=== PATIENT | male | born 1945 | race Caucasian/White ===

== ENCOUNTER 2020-03-24 10:49 | Inpatient (IN) | payer MEDICARE, SELFPAY ==
[2020-03-24] VITALS (8 sets, daily range): BP systolic 133–186; BP diastolic 54–90; PULSE 54–65; RESP 16–18; TEMP 36.6–36.9; O2SAT 97–98; BMI 34.4
--- NOTE | 2020-03-24 11:03 | XR_ITS ---
EXAMINATION: XR CHEST CLINICAL INFORMATION: Lightheadedness. COMPARISON: None TECHNIQUE: Frontal view of the chest was obtained. FINDINGS: No significant abnormality is noted involving the heart, lungs, mediastinum, bony thorax or soft tissues. No pulmonary edema or focal consolidation. Normal heart size. XR/XR chest 1V IMPRESSION: Unremarkable examination.
--- NOTE | 2020-03-24 11:03 | ECG_ITS ---
Test Reason : DIZZINESS Blood Pressure : / mmHG Vent. Rate : 055 BPM Atrial Rate : 055 BPM P-R Int : 210 ms QRS Dur : 110 ms QT Int : 448 ms P-R-T Axes : -03 031 020 degrees QTc Int : 428 ms Sinus bradycardia with 1st degree A-V block Otherwise normal ECG No previous ECGs available Referred By: Juliana Lynn Electronically Signed By:INDRA MIRANDA MD
--- NOTE | 2020-03-24 11:04 | CT_ITS ---
EXAMINATION: CT HEAD WITHOUT CONTRAST (STROKE PROTOCOL) CLINICAL INFORMATION: Stroke protocol. Lightheadedness and off-balance COMPARISON: None TECHNIQUE: Contiguous axial imaging was performed from the skull base to vertex without intravenous administration of contrast. This CT examination was performed using dose optimization techniques as appropriate, variously including the following: *Automated exposure control *Adjustment of mA and/or kV according to patient size (this includes techniques or standardized protocols for targeted exams where dose is matched to indication/reason for exam; i.e. extremities or head) *Use of iterative reconstruction technique DLP: 799 mGy-cm FINDINGS: There is no intracranial hemorrhage, hematoma, or extra-axial fluid collection. The ventricles are normal in size. There is no hydrocephalus, edema, or mass effect. The [place]-white matter differentiation appears symmetric. There are regions of diminished density seen in the subinsular regions bilaterally which may be related to microangiopathy. No associated edema is seen.. The calvarium appears intact. There is no pneumocephalus or orbital emphysema. The visualized sinuses and middle ears and mastoid air cells show no significant mucosal thickening. There are no air-fluid levels. CT/CT head for stroke IMPRESSION: No acute intracranial pathology. Findings consistent with microangiopathy involving the insula regions bilaterally. This critical result was discussed with Dr. Lynn at 11:38 AM hours on March 24, 2020. It was ascertained that the content and urgency of the report was understood at the time of direct communication.
--- NOTE | 2020-03-24 11:06 | MR_ITS ---
EXAMINATION: MR BRAIN WITHOUT CONTRAST CLINICAL INFORMATION: Lightheadedness. COMPARISON: Head CT from earlier in the same afternoon on 04/03/2020. TECHNIQUE: Multiplanar, multisequence imaging of the brain was performed without contrast. FINDINGS: There is a punctate focus of restricted diffusion in the mid cerebellar vermis. The ventricles are normal in size. No mass effect or midline shift is seen. Mild chronic white matter microangiopathic changes noted in the both hemispheres. No extra-axial fluid collections are seen. The brainstem and remainder of the cerebellum are normal. The gradient refocused acquisition is normal. The craniovertebral junction, marrow signal, and midline structures are normal. The major intracranial flow voids at the level of the [place] are preserved. The dural venous sinus flow voids are maintained. There is trace fluid in the left mastoid air cells dependently. Moderate posterior left ethmoid sinus mucosal thickening noted. MR/MR head/brain wo con IMPRESSION: Punctate focus of diffusion signal abnormality in the cerebellar vermis which may represent a small acute infarct. Mild chronic white matter microangiopathy. Imaging findings reported to Dr. Escamilla at 1:05 PM on 04/03/2020.
--- NOTE | 2020-03-24 11:11 | ED.DIZZY ---
HPI - Dizziness General Chief Complaint: Dizziness Stated Complaint: dizziness/nausea/htn Time Seen by Provider: 03/24/20 10:51 Source: patient and EMS Mode of arrival: EMS History of Present Illness HPI Narrative: 75-year-old male with a past medical history of AFib s/p ablation on baby ASA daily, GERD, HTN, BIBA s/p sudden onset lightheadedness, diaphoresis, nausea, blurry vision, & near-syncope at 9:20 a.m. while at breakfast with friends. Reports symptoms mildly improved but when was walking to car had staggering/off balanced gait, reports he had to hold on to another vehicle to regain balance. Admits to residual nausea, lightheadedness now. Denies headache, CP, SOB, numbness/tingling, abdominal pain, vomiting MD elicited complaint: lightheadedness, near syncope and difficulty walking Related Data Home Medications Medication Instructions Recorded Confirmed amlodipine 1 tab PO DAILY@1700 03/24/20 03/24/20 lisinopril 20 mg PO BID 03/24/20 03/24/20 pantoprazole 1 tab PO DAILY 03/24/20 03/24/20 Allergies Allergy/AdvReac Type Severity Reaction Status Date / Time No Known Allergies Allergy Verified 03/24/20 11:01 Review of Systems Review of Systems: Constitutional: No Weight loss, No Fever, + Chills, +diaphoresis ENT/Mouth: No Hearing loss, No Ear Pain, No Nasal Congestion, No Sinus Pain, No Hoarseness, No sore throat, No Rhinorrhea, No Swallowing Difficulty Eyes: No Eye Pain, + Vision Changes Cardiovascular: No Chest Pain, No SOB, No Palpitations Respiratory: No Cough, No Sputum, No Wheezing, No Dyspnea Gastrointestinal: + Nausea, No Vomiting, No Diarrhea, No Constipation, No Abdominal pain Musculoskeletal: No joint pain, No Myalgias, No Joint Swelling Skin: No Skin Lesions, No rash Neuro: No Weakness, No Numbness, No Paresthesias, No Loss of Consciousness,+lighteaded/Dizziness, No Headache Yes all other systems are reviewed and are negative Neurologic: Denies Abnormal speech present and Denies Sensory deficit (Neuro) [facility] Past Medical History Attestation statement: The following information was validated with the patient. Medical History (Updated 03/24/20 @ 13:36 by GRAYSON Corona) A-fib GERD (gastroesophageal reflux disease) HTN (hypertension) Surgical History (Updated 03/24/20 @ 11:06 by Alana Chaparro) S/P ablation of atrial fibrillation Social History Social History Smoking Status: Never smoker Use of substances other than those prescribed or required for medical reasons: No Advance Directives: No Advance Directives Information Provided: No Physical Exam Vital Signs: Vital Signs: Last Vital Signs Temp 97.9 F 03/24/20 14:37 Pulse 61 03/24/20 14:37 Resp 18 03/24/20 14:37 BP 174/57 H 03/24/20 14:37 Pulse Ox 98 03/24/20 11:01 Body Mass Index 34.4 Const: General: cooperative and healthy appearing Orientation/consciousness: patient oriented x3 Limitations: no limitations HENMT: Head: Yes normal to inspection Ears: hearing grossly normal bilaterally General nose exam: Normal external nose present Face and sinus: Yes normal facial exam Eyes: General: appearance normal, both eyes and all related structures Sclerae: sclerae normal Corneas: corneas normal Pupils: Equal, round and reactive pupils present EOM: EOMs intact bilaterally Neck: Neck: Yes normal visual inspection and Yes no meningeal signs Resp: Effort & Inspection: normal respiratory effort Auscultation: clear to auscultation bilaterally, no crackles, no rhonchi and no wheezes Cardio: Rate: regular rate Heart sounds: S1 normal heart sound present and S2 normal heart sound present GI: Inspection: Yes normal to inspection Palpation (GI): Soft to palpation, nontender, no guarding and not rigid Skin: Rashes: no rashes Wounds: no wounds Neuro: General: patient oriented x3, tone normal, moves all extremities, no meningeal signs and CN's II-XI intact bilaterally Cranial nerves: Yes Equal, round and reactive pupils present Cognition (Neuro): normal cognition Speech: No Abnormal speech present Gait exam (Neuro): Staggering gait present (Slightly staggered gait to right-sided) Motor exam (neuro): 5/5 motor strength present throughout Sensory Exam: No Sensory deficit (Neuro) Coordination: [id number] test normal Extrem: Other: Mild bilateral LE pitting edema General: Yes normal to inspection Course Course Course Narrative: -1140--spoke to [facility], nothing acute on head CT. Brain MRI has been ordered. MRI called in -BUN 36, BNP 128, trop 6.8 > will obtain 3hr repeat at 1435, labs otherwise unremarkable -CXR unremarkable -I have been in close contact with medical front desk coordinator who has been in contact with Neurology, MRI showing punctate focus in the cerebellar which may represent a small acute infarct > per neurology area too small for tPA, NIHSS low, patient is not a candidate for tPA. Neurology recommended admission and CTA head and neck MDM - Dizziness MDM Narrative Medical decision making narrative: 75-year-old male with a past medical history of AFib s/p ablation on baby ASA daily, GERD, HTN, BIBA s/p sudden onset lightheadedness, diaphoresis, nausea, blurry vision, & near-syncope at 9:20 a.m. while at breakfast with friends also noted to have staggering/off-balance gait. On exam mildly hypertensive, NAD, mild staggering gait noted to the right side, no other focal neuro deficits, NIHSS =1 (due to right-sided LE ataxia). Concern for ACS vs cerebellar infarct/CVA vs metabolic etiology Patient is not candidate for tPA due to low NIHSS Plan: EKG, labs, stat head CT, UA, brain MRI, reassess Lab Data Result diagrams: 03/24/20 11:36 03/24/20 11:35 Labs: Lab Results 03/24/20 03/24/20 03/24/20 Range/Units 11:35 11:35 11:35 WBC (4.8-10.8) X10*3/uL RBC (4.60-5.80) X10*6/uL Hgb (14.0-18.0) g/dl Hct (42-52) % MCV (80-98) fL MCH (27.0-33.0) pg MCHC (31.0-36.0) g/dl RDW (11.0-16.0) % Plt Count (160-400) X10*3/uL MPV (9.4-12.4) fL Immature Gran % (Auto) (0.0-0.4) % Neut % (Auto) (45-73) % Lymph % (Auto) (20-40) % [place] % (Auto) (2-11) % Eos % (Auto) (0-4) % Baso % (Auto) (0-2) % Lymph # (Auto) (1.2-4.9) X10*3/uL [place] # (Auto) (0.1-1.2) X10*3/uL Eos # (Auto) (0.0-0.4) X10*3/uL Baso # (Auto) (0.0-0.2) X10*3/uL Abs Immat Gran (auto) (0.00-0.03) X10*3/uL Absolute Neuts (auto) (2.0-8.3) X10*3/uL Absolute Nucleated RBC (0.0-0.012) X10*3/uL Nucleated RBC % (auto) (0.0-0.2) /100WBC PT 12.2 (10.8-13.0) SEC INR 1.0 (0.9-1.1) APTT 31.6 (24.1-38.0) SEC Hold Blue Top Sodium 134 L (135-145) mmol/L Potassium 4.6 (3.3-5.1) mmol/l Chloride 102 (96-108) mmol/L Carbon Dioxide 25 (22-29) mmol/L Anion Gap 12 (12-20) BUN 36 H (9-16) mg/dL Creatinine 1.28 (0.5-1.4) mg/dL Estim Creat Clear Calc 54.1 Estimated GFR 55 Random Glucose 197 H (60-115) mg/dL Calcium 8.4 (8.4-10.2) mg/dL Magnesium 2.3 (1.6-2.6) mg/dL Total Bilirubin 0.5 (0.0-1.0) mg/dL Direct Bilirubin 0.2 (0.0-0.5) mg/dL AST 28 (5-37) U/L ALT 28 (0-40) U/L Alkaline Phosphatase 57 (39-117) U/L Troponin I High Sens 6.8 (<3.5-35.0) ng/L B-Natriuretic Peptide 128 H (<100) pg/mL Total Protein 6.7 (6.5-8.0) g/dL Albumin 4.2 (3.5-5.0) g/dL Urine Color Urine Appearance Urine pH (5.0-8.0) Ur Specific [place] (1.005-1.025) Urine Protein (NEG-TRACE) MG/DL Urine Glucose (UA) (NEG) MG/DL Urine Ketones (NEG) MG/DL Urine Blood (NEG) Urine Nitrite (NEG) Ur Leukocyte Esterase (NEG) 03/24/20 03/24/20 03/24/20 Range/Units 11:36 11:36 14:29 WBC 7.7 (4.8-10.8) X10*3/uL RBC 4.99 (4.60-5.80) X10*6/uL Hgb 15.1 (14.0-18.0) g/dl Hct 44.2 (42-52) % MCV 88.6 (80-98) fL MCH 30.3 (27.0-33.0) pg MCHC 34.2 (31.0-36.0) g/dl RDW 12.1 (11.0-16.0) % Plt Count 206 (160-400) X10*3/uL MPV 10.9 (9.4-12.4) fL Immature Gran % (Auto) 0.3 (0.0-0.4) % Neut % (Auto) 75.2 H (45-73) % Lymph % (Auto) 12.8 L (20-40) % [place] % (Auto) 10.4 (2-11) % Eos % (Auto) 0.8 (0-4) % Baso % (Auto) 0.5 (0-2) % Lymph # (Auto) 1.0 L (1.2-4.9) X10*3/uL [place] # (Auto) 0.8 (0.1-1.2) X10*3/uL Eos # (Auto) 0.1 (0.0-0.4) X10*3/uL Baso # (Auto) 0.0 (0.0-0.2) X10*3/uL Abs Immat Gran (auto) 0.02 (0.00-0.03) X10*3/uL Absolute Neuts (auto) 5.8 (2.0-8.3) X10*3/uL Absolute Nucleated RBC 0.000 (0.0-0.012) X10*3/uL Nucleated RBC % (auto) 0.0 (0.0-0.2) /100WBC PT (10.8-13.0) SEC INR (0.9-1.1) APTT (24.1-38.0) SEC Hold Blue Top SEE NOTE Sodium (135-145) mmol/L Potassium (3.3-5.1) mmol/l Chloride (96-108) mmol/L Carbon Dioxide (22-29) mmol/L Anion Gap (12-20) BUN (9-16) mg/dL Creatinine (0.5-1.4) mg/dL Estim Creat Clear Calc Estimated GFR Random Glucose (60-115) mg/dL Calcium (8.4-10.2) mg/dL Magnesium (1.6-2.6) mg/dL Total Bilirubin (0.0-1.0) mg/dL Direct Bilirubin (0.0-0.5) mg/dL AST (5-37) U/L ALT (0-40) U/L Alkaline Phosphatase (39-117) U/L Troponin I High Sens (<3.5-35.0) ng/L B-Natriuretic Peptide (<100) pg/mL Total Protein (6.5-8.0) g/dL Albumin (3.5-5.0) g/dL Urine Color YELLOW Urine Appearance CLEAR Urine pH 6.0 (5.0-8.0) Ur Specific [place] 1.015 (1.005-1.025) Urine Protein NEG (NEG-TRACE) MG/DL Urine Glucose (UA) 250 H (NEG) MG/DL Urine Ketones NEG (NEG) MG/DL Urine Blood NEG (NEG) Urine Nitrite NEG (NEG) Ur Leukocyte Esterase NEG (NEG) Discharge Plan Discharge Clinical Impression: Cerebrovascular accident Patient Disposition: Admitted As Inpatient
--- NOTE | 2020-03-24 11:19 | PC.NURSE ---
Patient a&ox3, neuro intact, pt put on rn cardiac rehab, sinus dorothy 60s, no c/o pain or discomfort, patient refused medication for nausea, pt direct to ct scan, will perform ekg and labs upon return.
[2020-03-24 11:42] LABS: MANUAL DIFF FLAG NO
[2020-03-24 11:44] LABS: Basophils Percent Auto 0.5 % (0-2); Eosinophils Absolute Auto 0.1 X10*3/uL (0.0-0.4); Eosinophils Percent Auto 0.8 % (0-4); Hematocrit 44.2 % (42-52); Hemoglobin 15.1 g/dl (14.0-18.0); Imm Gran Abs Auto 0.02 X10*3/uL (0.00-0.03); Imm Gran Pct Auto 0.3 % (0.0-0.4); Lymphocytes Percent Auto 12.8 % (20-40); Mean Corpuscular HGB Conc 34.2 g/dl (31.0-36.0); Mean Corpuscular Hemoglobin 30.3 pg (27.0-33.0); Mean Corpuscular Volume 88.6 fL (80-98); Mean Platelet Volume 10.9 fL (9.4-12.4); Monocytes Absolute Auto 0.8 X10*3/uL (0.1-1.2); Monocytes Percent Auto 10.4 % (2-11); Neutrophils Absolute Auto 5.8 X10*3/uL (2.0-8.3); Neutrophils Percent Auto 75.2 % (45-73); Platelet Count 206 X10*3/uL (160-400); Red Blood Count 4.99 X10*6/uL (4.60-5.80); Red Cell Distribution Width 12.1 % (11.0-16.0); White Blood Count 7.7 X10*3/uL (4.8-10.8)
[2020-03-24 12:02] LABS: Prothrombin Time 12.2 SEC (10.8-13.0)
[2020-03-24 12:04] LABS: Partial Thromboplastin Time 31.6 SEC (24.1-38.0)
[2020-03-24 12:16] LABS: Alanine Aminotransferase 28 U/L (0-40); Albumin Level 4.2 g/dL (3.5-5.0); Alkaline Phosphatase 57 U/L (39-117); Anion Gap 12 (12-20); Aspartate Amino Transferase 28 U/L (5-37); Bilirubin Direct 0.2 mg/dL (0.0-0.5); Bilirubin Total 0.5 mg/dL (0.0-1.0); Blood Urea Nitrogen 36 mg/dL (9-16); Calcium 8.4 mg/dL (8.4-10.2); Carbon Dioxide 25 mmol/L (22-29); Chloride 102 mmol/L (96-108); Creatinine Clr Calc Pharmacy 54.1; Estimated Glomerular Filt Rate 55; Glucose Random 197 mg/dL (60-115); Magnesium 2.3 mg/dL (1.6-2.6); Potassium 4.6 mmol/l (3.3-5.1); Sodium 134 mmol/L (135-145); Total Protein 6.7 g/dL (6.5-8.0)
[2020-03-24 12:20] LABS: B Type Natriuretic Peptide 128 pg/mL (<100); Troponin-I High Sensitivity 6.8 ng/L (<3.5-35.0)
[2020-03-24] MEDS: 0.9 % Sodium Chloride 1,000 ML 999 ML IVCONT (12:47)
--- NOTE | 2020-03-24 13:00 | PC.NURSE ---
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
--- NOTE | 2020-03-24 13:03 | CT_ITS ---
EXAMINATION: CT ANGIOGRAM NECK CLINICAL INFORMATION: Evaluate CVA. COMPARISON: MRI scan of the brain and CT scan of the head earlier 03/24/2020. TECHNIQUE: Test bolus series followed by intravenous administration 720 mL of Omnipaque 350. Helical imaging was performed in the axial plane from the mediastinum to the skull vertex. Delayed CT scan of the head was obtained. The degree of stenosis is based off NASCET criteria. The data was processed at the anesthesiology technologist workstation for generation of MIP images. Three-dimensional volume rendered reformatted images were also generated at an offline 3-D workstation. This CT examination was performed using dose optimization techniques as appropriate, variously including the following: *Automated exposure control *Adjustment of mA and/or kV according to patient size (this includes techniques or standardized protocols for targeted exams where dose is matched to indication/reason for exam; i.e. extremities or head) *Use of iterative reconstruction technique DLP: 1637.57 mGy-cm. FINDINGS: CT Head: There is no evidence of acute intracranial hemorrhage or territorial infarction. No abnormal mass-effect or midline shift is seen. Flynn to white matter differentiation is well preserved. No extra-axial fluid collections are identified. There is no abnormal enhancement. The ventricles and sulci appear normal. There are areas of low-attenuation in the periventricular and subcortical white matter, consistent with chronic microvascular ischemic changes. There are atheromatous calcifications of the bilateral vertebral and cavernous internal carotid arteries. The osseous structures and soft tissues are normal. There is trace fluid at the left mastoid tip. There is opacification of the left posterior ethmoid air cells. CTA Neck: There is a classic configuration of the arch of the aorta. There are relatively extensive atheromatous calcifications of the aortic arch and at the origins of the great vessels of the neck and the right subclavian artery. The bilateral common carotid arteries demonstrate atheromatous calcifications, without significant stenosis. There are heavy atheromatous calcifications at the carotid bifurcations bilaterally. There is approximately 75% stenosis at the right carotid bifurcation. There is approximately 50% stenosis on the left. The cervical internal carotid arteries are slightly tortuous but have uniform caliber and are patent bilaterally. The origin of the left vertebral artery is not well demonstrated, and the left vertebral artery has thinner and slightly irregular contour compared to the right. The origin of the right vertebral artery appears normal, and there is good flow in the dominant right vertebral artery. Nonvascular: There are atelectatic changes in the posterior lungs. The thyroid gland appears normal. There is no cervical lymphadenopathy. There are mild degenerative changes in the cervical spine. The left maxillary and mandibular 3rd molar teeth are unerupted, with prominent surrounding dentigerous cysts. There is expansion of the mandible around the evolving the lingual cortex. CTA Head: There are heavy atheromatous calcifications in the cavernous internal carotid arteries bilaterally, but the vessels are patent. There is good flow in the supraclinoid internal carotid arteries bilaterally. The A1 segment of the right anterior cerebral artery has thinner caliber compared to the left, likely a normal variant. Both A2 segments and the A1 segment of the left anterior cerebral artery have uniform and normal caliber. Both middle cerebral arteries are widely patent, and there is good arborization of the middle cerebral artery branches. The anterior communicating artery is normal. In the posterior circulation, the right vertebral artery is dominant. There are atheromatous calcifications of the bilateral intradural vertebral arteries. The caliber of the distal cervical and the intradural left vertebral artery appears relatively uniform. The left vertebral artery ends primarily in the PICA. The right vertebral artery is patent. The basilar artery appears normal. The left vertebral artery arises primarily from the anterior circulation. The posterior cerebral arteries are patent bilaterally. CT/CT angio head neck IMPRESSION: CT head and neck: 1. There are no acute bleeds or territorial infarcts. There are no masses or areas of abnormal enhancement. 2. There is diffuse volume loss and there are chronic microvascular ischemic changes. 3. There are unerupted left maxillary and mandibular 3rd molar teeth with prominent surrounding dentigerous cysts. Recommend dental/maxillofacial evaluation. CTA head and neck: 1. There are severe atheromatous calcifications throughout the cervical and intracranial vasculature. 2. There is approximately 70% stenosis of the right carotid bifurcation and approximately 50% stenosis on the left. 3. The left vertebral artery has thinner and irregular contour compared to the right in the neck, but appears to have good flow intradurally; it ends primarily in the PICA. 4. Intracranially there are no focal stenoses, aneurysms or vascular malformations. This critical result was discussed with Juliana Lynn at 3:15 PM on 03/24/2020 and it was ascertained that the content and urgency of the report was understood at the time of direct communication.
--- NOTE | 2020-03-24 13:09 | MHC.STROKE ---
EMS FROM OUTPATIENT CLINIC, ONSET AT 0920 OF DIZZINESS, NAUSEA, OFF BALANCE, HTN 213/84.,?BLURRED VISION. [place] [facility] [place] 10[place]. ARRIVED AT 1049. STROKE PROTOCOL CT STAT DONE AT 1118, NO BLEED. STAT MRI ORDERED. I SPOKE WITH ED PROVIDER AND THEN CALLED THE NEUROLOGIST. I FOLLOWED UP WITH WITH NEUROLOGIST AND HE AGREED WITH NO TPA (ALTEPLASE) NIHSS = 1. STROKE SEVERITY TOO MILD NON-DISABLING. CAN ADMIT AND CTA H/N PART OF THE WORKUP. SWALLOW SCREEN PRIOR TO PO, ECHO, NEUROLOGY CONSULT, LABS, STROKE EDUCATION. FOLLOW STROKE ORDER SET MODULE.
--- NOTE | 2020-03-24 13:10 | PC.NURSE ---
CALL TO DR DODSON
[2020-03-24 14:43] LABS: Glucose Urine UA 250 MG/DL (NEG); Leukocyte Esterase Urine NEG (NEG); Nitrite Urine NEG (NEG); Specific Gravity - Urine 1.015 (1.005-1.025); Urine Blood NEG (NEG); Urine Ketones NEG (NEG); Urine Protein NEG (NEG-TRACE)
--- NOTE | 2020-03-24 14:46 | PM.IMHP ---
History of Present Illness Date of Service: 03/24/20 Chief Complaint: Dizziness 75-year-old man presented to the ER with complaints of lightheadedness and diaphoresis this morning. He reports that around 09:00 he was eating breakfast with his friends and suddenly he began to feel lightheaded and it began sweating. He reports that he was on his way out to go home and he felt like he had some trouble walking he felt drunk . He went home and his significant other brought him to an urgent care who called an ambulance and told him to come to the ER to be evaluated. He reports a history of hypertension and cardiac ablation for atrial fibrillation in the past. He also has acid reflux. He had an MRI which showed a punctuate focus in the cerebellar vermis. Head and neck CTA showed 70% stenosis of the right carotid bifurcation and approximately 50% stenosis on the left. His labs are within acceptable limits his vital signs were also stable though his blood pressure is mildly elevated. He denies chest pain, shortness of breath, nausea, vomiting, diarrhea, loss of consciousness or history of stroke in the past. He received 1 L of IV fluid. He will be admitted for further management and treatment of acute stroke. Review of Systems Review of Systems: Denies any recent fever chills or decrease in appetite respiratory denies any shortness of breath coverage production cardiovascular is adjustment of any PND or edema gastrointestinal denies any dysphagia abdominal pain nausea vomiting or diarrhea genitourinary denies any dysuria frequency or hematuria musculoskeletal denies any joint pain or swelling neuropsych denies any weakness or seizures all other systems reviewed are negative Neurologic: Denies Sensory deficit (Neuro) [facility] [place] Medical History (Updated 03/24/20 @ 13:36 by GRAYSON Corona) A-fib GERD (gastroesophageal reflux disease) HTN (hypertension) Pertinent family history: Denies cardiac disease Surgical History (Updated 03/24/20 @ 11:06 by Alana Chaparro) S/P ablation of atrial fibrillation Social History Household Members: None Housing: House Do you presently have visiting nurse or other home services: No Smoking Status: Never smoker Use of substances other than those prescribed or required for medical reasons: No Currently Displaying Signs/Symptoms of Drug Intoxication Withdrawal: No Have you been hit, kicked, punched, or otherwise hurt by someone within the past year? If so, by whom?: No Do you feel safe in your current relationship?: Yes Is there a partner from a previous relationship who is making you feel unsafe now?: No Are you made to feel afraid or neglected: No Advance Directives: No Advance Directives Information Provided: No Do you have thoughts of harming others: None Do you have a plan to hurt others: No Plan Recently lost weight without trying: No service: No Current occupational status: retired Meds Allergies Allergy/AdvReac Type Severity Reaction Status Date / Time No Known Allergies Allergy Verified 03/24/20 11:01 Home Medications Medication Instructions Recorded Confirmed Type amlodipine 1 tab PO DAILY@1700 03/24/20 03/24/20 History lisinopril 20 mg PO BID 03/24/20 03/24/20 History pantoprazole 1 tab PO DAILY 03/24/20 03/24/20 History Physical Exam Vital Signs and Narrative: Vital Signs: Last Vital Signs Temp 97.9 F 03/24/20 14:37 Pulse 61 03/24/20 14:37 Resp 18 03/24/20 14:37 BP 174/57 H 03/24/20 14:37 Pulse Ox 98 03/24/20 11:01 Body Mass Index 34.4 Appearing in no acute distress head is normocephalic atraumatic eyes pupils are PERRLA sclera is anicteric mouth throat mucous membranes are intact and moist neck is supple no lymphadenopathy, no JVD noted lung sounds are clear to auscultation heart regular rate rhythm, clear S1, S2 positive bowel sounds, abdomen is soft, nontender neuro patient is alert x3, no focal deficits Neuro: Sensory Exam: No Sensory deficit (Neuro) Results Labs CBC and Chem 7: 03/25/20 06:10 03/25/20 06:10 Labs: Laboratory Results - last 24 hr 03/24/20 03/24/20 03/24/20 11:35 11:35 11:35 MCV MCH MCHC RDW Plt Count MPV Immature Gran % (Auto) Neut % (Auto) Lymph % (Auto) Lanier % (Auto) Eos % (Auto) Baso % (Auto) Lymph # (Auto) Lanier # (Auto) Eos # (Auto) Baso # (Auto) Abs Immat Gran (auto) Absolute Neuts (auto) Absolute Nucleated RBC Nucleated RBC % (auto) PT 12.2 INR 1.0 APTT 31.6 Hold Blue Top Anion Gap 12 Estim Creat Clear Calc 54.1 Estimated GFR 55 Random Glucose 197 H Calcium 8.4 Magnesium 2.3 Total Bilirubin 0.5 Direct Bilirubin 0.2 AST 28 ALT 28 Alkaline Phosphatase 57 Troponin I High Sens 6.8 B-Natriuretic Peptide 128 H Total Protein 6.7 Albumin 4.2 03/24/20 03/24/20 11:36 11:36 MCV 88.6 MCH 30.3 MCHC 34.2 RDW 12.1 Plt Count 206 MPV 10.9 Immature Gran % (Auto) 0.3 Neut % (Auto) 75.2 H Lymph % (Auto) 12.8 L Lanier % (Auto) 10.4 Eos % (Auto) 0.8 Baso % (Auto) 0.5 Lymph # (Auto) 1.0 L Lanier # (Auto) 0.8 Eos # (Auto) 0.1 Baso # (Auto) 0.0 Abs Immat Gran (auto) 0.02 Absolute Neuts (auto) 5.8 Absolute Nucleated RBC 0.000 Nucleated RBC % (auto) 0.0 PT INR APTT Hold Blue Top SEE NOTE Anion Gap Estim Creat Clear Calc Estimated GFR Random Glucose Calcium Magnesium Total Bilirubin Direct Bilirubin AST ALT Alkaline Phosphatase Troponin I High Sens B-Natriuretic Peptide Total Protein Albumin Imaging Radiologist's Impressions: Impressions Chest X-Ray 03/24/20 11:03 IMPRESSION: Unremarkable examination. Head CT 03/24/20 11:04 IMPRESSION: No acute intracranial pathology. Findings consistent with microangiopathy involving the insula regions bilaterally. This critical result was discussed with Dr. Lynn at 11:38 AM hours on March 24, 2020. It was ascertained that the content and urgency of the report was understood at the time of direct communication. Brain MRI 03/24/20 11:06 IMPRESSION: Punctate focus of diffusion signal abnormality in the cerebellar vermis which may represent a small acute infarct. Mild chronic white matter microangiopathy. Imaging findings reported to Dr. Escamilla at 1:05 PM on 04/03/2020. Assessment and Plan (1) Cerebrovascular accident: Status: Acute 75-year-old man admitted with acute stroke. He has history of afib with ablation and has not been on anticoagulation. Stroke. Small area punctuate focus to the cerebellar vermis. Did not receive tPA. No focal deficits noted. Neurology to follow, aspirin, statin, PT / OT, echocardiogram. Hypertension. Stable blood pressure. Hold antihypertensives. GERD. PPI. DVT prophylaxis with Heparin. Discussed with Dr. Naren Villanueva code
[2020-03-24 14:47] LABS: Appearance Urine CLEAR; Color Urine YELLOW
[2020-03-24 15:42] LABS: Troponin-I High Sensitivity 7.3 ng/L (<3.5-35.0)
--- NOTE | 2020-03-24 16:07 | PC.NURSE ---
called floor, will call the ed back for report
--- NOTE | 2020-03-24 16:14 | PC.NURSE ---
patient a&ox3, ambulated to bathroom with steady gait, pt nsr on monitor 60s-70s, has c/o 4-09/24 rt tooth pain otherwise denies chest/back or head pain, vss, will continue to monitor
[2020-03-24] MEDS: Aspirin Enteric Coated 325 MG TABLET.DR PO (17:15)
--- NOTE | 2020-03-24 17:16 | PC.NURSE ---
patient a&ox3, sinus dorothy 60s on monitor, pt medicated per order, will be transported to floor
[2020-03-24 18:00] LABS: SARS COV2 PCR INHOUSE NEGATIVE (Negative)
[2020-03-24] MEDS: Aspirin Enteric Coated 81 MG TABLET.DR 162 MG PO (18:27)
--- NOTE | 2020-03-24 19:07 | PC.NURSE ---
Pt arrived to the unit from ER at 1745. Pt is alert & oriented x4. Pt does report slight dizziness . No headache. Neuros intact. Pt Sinus Loki. BP's 180 systolically. MD aware. Ok for elevated BP's per MD d/t stroke guidelines. Swallow evaluation completed. Pt passed. Low sodium diet ordered. Pt currently eating dinner now without any issues. + BS X4Q. Pt voids urine via bathroom. LSC. RA. Sats high 90's. #20 to Right wrist intact. No skin issues noted. Pt is steady on his feet. High fall risk d/t stroke protocol. Pt does report drinking 3-4 white claws a night. CIWA and alcohol assessment initiated. Pt not displaying any signs of withdrawal. CIWA 0. Call naavrro in reach. Pt oriented to unit.
--- NOTE | 2020-03-24 19:26 | PC.NURSE ---
pt was medicated earlier with asa, scanned the med although it would not scan, double checked medication with additional RN to ensure it was correct, will notify pharmacy that it is not scanning
[2020-03-24] MEDS: Heparin Sodium,Porcine 5,000 UNIT/ML VIAL 5000 UNIT SUBCUT (20:01)
[2020-03-24] MEDS: Atorvastatin Calcium 80 MG TABLET PO (20:03)
--- NOTE | 2020-03-24 20:22 | PM.EVENT ---
Event Note Event Note: Attending Admission Note Patient seen and examined on the floor around 630pm. Being admitted for acute cerebellar infarct. Not a candidate for tPA per ED discussion with the neurology team. Prior history of A. Fib on coumadin - s/p ablation. Does endorse some intermittent palpitations with exertion. Plan: 1. Neuro consult 2. Stroke protocol for work up. 3. Monitor on tele, currently in sinus 4. asa for now, may need OAC -- will await neuro input. High intensity statin. 5. Allow for permission HTN 6. Remainder per H&P. Case d/w Katy Burks NP. Agree with her H&P / Assessment.
[2020-03-25 01:42] VITALS: BP 173/68; PULSE 59; RESP 18; TEMP 36.7; O2SAT 95
[2020-03-25 03:57] VITALS: BP 159/59; PULSE 58; RESP 18; TEMP 37.1; O2SAT 95
[2020-03-25] MEDS: Omeprazole 20 MG CAPSULE.DR PO (05:55)
[2020-03-25 07:11] LABS: MANUAL DIFF FLAG NO
[2020-03-25 07:29] LABS: Basophils Percent Auto 0.7 % (0-2); Eosinophils Absolute Auto 0.1 X10*3/uL (0.0-0.4); Eosinophils Percent Auto 2.6 % (0-4); Hematocrit 44.5 % (42-52); Hemoglobin 15.1 g/dl (14.0-18.0); Imm Gran Abs Auto 0.01 X10*3/uL (0.00-0.03); Imm Gran Pct Auto 0.2 % (0.0-0.4); Lymphocytes Absolute Auto 1.4 X10*3/uL (1.2-4.9); Lymphocytes Percent Auto 24.9 % (20-40); Mean Corpuscular HGB Conc 33.9 g/dl (31.0-36.0); Mean Corpuscular Hemoglobin 30.1 pg (27.0-33.0); Mean Corpuscular Volume 88.6 fL (80-98); Mean Platelet Volume 11.4 fL (9.4-12.4); Monocytes Absolute Auto 0.7 X10*3/uL (0.1-1.2); Monocytes Percent Auto 13.3 % (2-11); Neutrophils Absolute Auto 3.2 X10*3/uL (2.0-8.3); Neutrophils Percent Auto 58.3 % (45-73); Platelet Count 200 X10*3/uL (160-400); Red Blood Count 5.02 X10*6/uL (4.60-5.80); Red Cell Distribution Width 12.1 % (11.0-16.0); White Blood Count 5.4 X10*3/uL (4.8-10.8)
[2020-03-25 07:37] LABS: Glucose, Whole Blood 117 mg/dL (60-115)
[2020-03-25 07:40] VITALS: BP 190/73; PULSE 62; RESP 18; TEMP 36.7; O2SAT 96
[2020-03-25 07:58] LABS: Anion Gap 13 (12-20); Blood Urea Nitrogen 29 mg/dL (9-16); Calcium 8.3 mg/dL (8.4-10.2); Carbon Dioxide 24 mmol/L (22-29); Chloride 105 mmol/L (96-108); Creatinine Clr Calc Pharmacy 66.6; Estimated Glomerular Filt Rate > 60; Glucose Random 116 mg/dL (60-115); Potassium 4.8 mmol/l (3.3-5.1); Sodium 137 mmol/L (135-145)
[2020-03-25] MEDS: Acetaminophen 325 MG TABLET 650 MG PO (09:10)
[2020-03-25] MEDS: Aspirin Enteric Coated 81 MG TABLET.DR PO (09:11)
[2020-03-25] MEDS: Heparin Sodium,Porcine 5,000 UNIT/ML VIAL 5000 UNIT SUBCUT (09:11)
--- NOTE | 2020-03-25 09:13 | MHC.CM.PN ---
CM met with Patient. 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 Patient states that he is already up and about walking and he does not feel that he will need VNA/PT in the home. CM has initiated and will follow for dc planning. IMM addressed with Patient and the original has been given to him and a copy has been placed on the chart. Patient's Partner's Daughter/Lin, who is a RN, is his HCP and Dr. Karen Maharaj @ [phone] is his PCP.
--- NOTE | 2020-03-25 09:31 | MHC.STROKE ---
Lipid panel was ordered for today at 1800, i called the lab and verified that this should be fasting. It was added to his am labs from today.
[2020-03-25 09:42] LABS: Cholesterol 212 mg/dL; HDL Cholesterol 47 mg/dL; LDL Cholesterol Calculated 130 mg/dl; Triglycerides 179 mg/dL
[2020-03-25 09:49] VITALS: BP 189/77; PULSE 70; RESP 20; TEMP 36.7; O2SAT 97
[2020-03-25 12:00] VITALS: BP 196/77; PULSE 63; RESP 20; TEMP 36.8; O2SAT 96
--- NOTE | 2020-03-25 12:13 | PM.DS ---
DS: Providers Provider Date of admission: 03/24/20 15:34 Primary care physician: Unknown Physician Consults: 03/24/20 17:58 Consult to Neurology Routine Consulting Provider: [facility] Reason for consultation: stroke Has provider been notified: No DS: Diagnosis Discharge Diagnosis (1) Cerebrovascular accident: Status: Acute DS: Summary Hospital Course Hospital Course: Patient was admitted for acute CVA. He had no events on telemetry. He was started on aspirin statin, he was seen by neurology recommended using full anticoagulation with Eliquis instead of aspirin due to high suspicion for recurrent a flutter. 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 He will have his echocardiogram done as outpatient. His deficits have almost entirely resolved. Time Spent with Patient Time attestation: Total time spent providing and/or coordinating discharge services: Physical Exam Vital Signs: Vital Signs: Last Vital Signs Temp 98.1 F 03/25/20 09:49 Pulse 70 03/25/20 09:49 Resp 20 03/25/20 09:49 BP 189/77 H 03/25/20 09:49 Pulse Ox 97 03/25/20 09:49 Body Mass Index 34.4 General: AO X 3, no acute distress Resp: CTA bilateral CVS: S1,S2,RRR GI: soft, non tender, non distended Neuro: motor grossly intact Psych: appropriate affect DS: Data Data Completed and Pending Labs on day of discharge: 03/24/20 11:03 ECG 12 lead EKG Stat EKG Documentation DIRECTED XR chest 1V Stat ondansetron HCL [Zofran] 4 mg IVPUSH ONCE ONE 03/24/20 11:04 CT head for stroke Stat 03/24/20 11:06 MR head/brain wo con Stat 03/24/20 11:35 B Type Natriuretic Peptide Stat Basic Metabolic Panel Stat Liver Panel Stat Magnesium Stat Partial Thromboplastin Time Stat Prothrombin Time INR Stat Troponin-I High Sensitivity Stat 03/24/20 11:36 Complete Blood Count Auto Diff Stat Hold Lt Blue - Possible Coag Stat 03/24/20 12:30 0.9 % Sodium Chloride [Ns] 1,000 ml IVCONT 999 mls/hr 03/24/20 13:03 CT angio head neck Stat 03/24/20 14:18 iohexoL 350 MG/ML [Omnipaque 350 MG/ML] 70 ml IV ONCE ONE 03/24/20 14:29 UA CC w/rflx Micro + Cult Stat 03/24/20 14:57 Aspirin Enteric Coated [Ecotrin] 162 mg PO ONCE ONE 03/24/20 15:00 Aspirin Enteric Coated [Ecotrin] 325 mg PO ONCE ONE 03/24/20 15:06 Troponin-I High Sensitivity Stat 03/24/20 15:23 Transfer Order Routine 03/24/20 16:38 SARS COV2 PCR INHOUSE Stat 03/25/20 06:10 Basic Metabolic Panel DAILY@0600 Complete Blood Count Auto Diff DAILY@0600 Lipid Panel Routine 03/25/20 07:33 Glucose, Whole Blood Routine Laboratory Last Values WBC 5.4 X10*3/uL (4.8-10.8) 03/25/20 06:10 RBC 5.02 X10*6/uL (4.60-5.80) 03/25/20 06:10 Hgb 15.1 g/dl (14.0-18.0) 03/25/20 06:10 Hct 44.5 % (42-52) 03/25/20 06:10 MCV 88.6 fL (80-98) 03/25/20 06:10 MCH 30.1 pg (27.0-33.0) 03/25/20 06:10 MCHC 33.9 g/dl (31.0-36.0) 03/25/20 06:10 RDW 12.1 % (11.0-16.0) 03/25/20 06:10 Plt Count 200 X10*3/uL (160-400) 03/25/20 06:10 MPV 11.4 fL (9.4-12.4) 03/25/20 06:10 Immature Gran % (Auto) 0.2 % (0.0-0.4) 03/25/20 06:10 Neut % (Auto) 58.3 % (45-73) 03/25/20 06:10 Lymph % (Auto) 24.9 % (20-40) 03/25/20 06:10 Patrick % (Auto) 13.3 % (2-11) H 03/25/20 06:10 Eos % (Auto) 2.6 % (0-4) 03/25/20 06:10 Baso % (Auto) 0.7 % (0-2) 03/25/20 06:10 Lymph # (Auto) 1.4 X10*3/uL (1.2-4.9) 03/25/20 06:10 Patrick # (Auto) 0.7 X10*3/uL (0.1-1.2) 03/25/20 06:10 Eos # (Auto) 0.1 X10*3/uL (0.0-0.4) 03/25/20 06:10 Baso # (Auto) 0.0 X10*3/uL (0.0-0.2) 03/25/20 06:10 Abs Immat Gran (auto) 0.01 X10*3/uL (0.00-0.03) 03/25/20 06:10 Absolute Neuts (auto) 3.2 X10*3/uL (2.0-8.3) 03/25/20 06:10 Absolute Nucleated RBC 0.000 X10*3/uL (0.0-0.012) 03/25/20 06:10 Nucleated RBC % (auto) 0.0 /100WBC (0.0-0.2) 03/25/20 06:10 PT 12.2 SEC (10.8-13.0) 03/24/20 11:35 INR 1.0 (0.9-1.1) 03/24/20 11:35 APTT 31.6 SEC (24.1-38.0) 03/24/20 11:35 Hold Blue Top SEE NOTE 03/24/20 11:36 Sodium 137 mmol/L (135-145) 03/25/20 06:10 Potassium 4.8 mmol/l (3.3-5.1) 03/25/20 06:10 Chloride 105 mmol/L (96-108) 03/25/20 06:10 Carbon Dioxide 24 mmol/L (22-29) 03/25/20 06:10 Anion Gap 13 (12-20) 03/25/20 06:10 BUN 29 mg/dL (9-16) H 03/25/20 06:10 Creatinine 1.04 mg/dL (0.5-1.4) 03/25/20 06:10 Estim Creat Clear Calc 66.6 03/25/20 06:10 Estimated GFR > 60 03/25/20 06:10 POC Glucose 117 mg/dL (60-115) H 03/25/20 07:33 Random Glucose 116 mg/dL (60-115) H D 03/25/20 06:10 Calcium 8.3 mg/dL (8.4-10.2) L 03/25/20 06:10 Magnesium 2.3 mg/dL (1.6-2.6) 03/24/20 11:35 Total Bilirubin 0.5 mg/dL (0.0-1.0) 03/24/20 11:35 Direct Bilirubin 0.2 mg/dL (0.0-0.5) 03/24/20 11:35 AST 28 U/L (5-37) 03/24/20 11:35 ALT 28 U/L (0-40) 03/24/20 11:35 Alkaline Phosphatase 57 U/L (39-117) 03/24/20 11:35 Troponin I High Sens 7.3 ng/L (<3.5-35.0) 03/24/20 15:06 B-Natriuretic Peptide 128 pg/mL (<100) H 03/24/20 11:35 Total Protein 6.7 g/dL (6.5-8.0) 03/24/20 11:35 Albumin 4.2 g/dL (3.5-5.0) 03/24/20 11:35 Triglycerides 179 mg/dL 03/25/20 06:10 Cholesterol 212 mg/dL 03/25/20 06:10 LDL Cholesterol, Calc 130 mg/dl 03/25/20 06:10 HDL Cholesterol 47 mg/dL 03/25/20 06:10 Urine Color YELLOW 03/24/20 14:29 Urine Appearance CLEAR 03/24/20 14:29 Urine pH 6.0 (5.0-8.0) 03/24/20 14:29 Ur Specific Velpen 1.015 (1.005-1.025) 03/24/20 14:29 Urine Protein NEG MG/DL (NEG-TRACE) 03/24/20 14:29 Urine Glucose (UA) 250 MG/DL (NEG) H 03/24/20 14:29 Urine Ketones NEG MG/DL (NEG) 03/24/20 14:29 Urine Blood NEG (NEG) 03/24/20 14:29 Urine Nitrite NEG (NEG) 03/24/20 14:29 Ur Leukocyte Esterase NEG (NEG) 03/24/20 14:29 Coronavirus (PCR) NEGATIVE (Negative) 03/24/20 16:38 Discharge Plan Discharge Patient Disposition: Home, Self-Care Referrals: Librado Kilgore MD [Physician] - Physician,Unknown [Primary Care Provider] - Discharge Medications: New atorvastatin 80 mg Tablet 80 mg PO BEDTIME Qty: 30 RF: 0 Eliquis 5 mg tablet 5 mg PO BID Qty: 60 RF: 0 Continued lisinopril 20 mg tablet 20 mg PO BID RF: 0 amlodipine 2.5 mg tablet 1 tab PO DAILY@1700 RF: 0 pantoprazole 40 mg tablet,delayed release (DR/EC) 1 tab PO DAILY RF: 0 Discharge Orders: Discharge Order (Routine); Ordered 03/25/20 Ordered By: Josiah Gomes Activity on Discharge: As tolerated Other Ambulatory Orders: [place] echo transthoracic complete (Routine) Timeframe: 1 Week Facility: [facility] - Location: Cardiology Ordered By: Josiah Gomes Visit Report Forms: Patient Portal Discharge page Care Plan Goals: prevent further strokes Health Concerns: stroke Plan of Treatment: start lipitor and eliquis (with coupon) follow up neurology and cardiology, outpatient, echo
--- NOTE | 2020-03-25 12:48 | MHC.CM.PN ---
Patient has been medically cleared for dc to home today, no services.
--- NOTE | 2020-03-25 19:52 | MHC.STROKE ---
ASSESSED FOR REHAB AND INELIGIBLE BECAUSE SYMPTOMS RESOLVED.
== END 2020-03-25 14:18 | disposition home or self-care (01) | DRG 66 ==
LOC: HO.ED 13:51 → HO.IMC 15:46
PROVIDERS: Nurse Practitioner Acute Care; Physician Assistant; Admitting Provider Family Medicine; Emergency Provider Emergency Medicine; Visit Provider Internal Medicine
DX: I63.9 Cerebral infarction, unspecified (principal); K21.9 Gastro-esophageal reflux disease without esophagitis; I48.91 Unspecified atrial fibrillation; Z20.828 Contact with and (suspected) exposure to other viral communicable diseases; Z79.899 Other long term (current) drug therapy
CPT/HCPCS: 36415; 70450; 70496; 70498; 70551; 71045; 80048; 80061; 80076; 81003; 82947; 83735; 83880; 84484; 85025; 85610; 85730; 93005; 96361; 96374; 99285; U0003

== ENCOUNTER 2022-12-02 09:20 | Outpatient (REF) | payer MEDICARE, SELFPAY ==
[2022-12-02 11:28] LABS: Blood Urea Nitrogen 39 mg/dL (9-16); Estimated Glomerular Filt Rate > 60
== END 2022-12-02 09:21 | disposition home or self-care (01) ==
LOC: HO.10HDL 09:20
PROVIDERS: Visit Provider Psychiatry & Neurology Neurology
DX: I63.9 Cerebral infarction, unspecified (principal)
CPT/HCPCS: 36415; 82565; 84520

== ENCOUNTER 2023-01-21 07:42 | Outpatient (REF) | payer MEDICARE, SELFPAY | END 2023-01-21 07:43 | disposition home or self-care (01) | LOC: HO.MRI 07:42 | PROVIDERS: Visit Provider Psychiatry & Neurology Neurology | DX: Z13.89 Encounter for screening for other disorder (principal) ==

== ENCOUNTER 2025-05-05 09:15 | Outpatient (AMB) | payer MEDICARE, SELFPAY ==
--- OUTSIDE RECORDS SUMMARY | 2025-05-04 08:40 | XMS_ITS | Encounter Summary ---
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 Name Role Phone Marcos Torres Primary Care Provider [phone] Reason for Referral * Cardiac Stress Testing (Routine) - Pending Review Specialty Diagnoses / Procedures Referred By Contac t Referred To Contact Cardiology Diagnoses Dyspnea on exertion Procedures Nuclear stress test with myocardial perfusion WY MYOCARDIAL PERFUSION IMAGING TOMOGRAPHIC MULTI STUDIES AT REST OR STRESS WY MYOCARDIAL PERFUSION IMAGING TOMOGRAPHIC SINGLE STUDY AT REST OR STRESS WY CARDIOVASCULAR STRESS TEST GLOBAL WY CV TMST/BIKE MAX/SUBMAX CONTINUOUS ECG MON/PHARM STRESS SUPVSR ONLY [place] CV STRESS TEST/BIKE CONT ECG MON/PHARM STRESS INTERP & REPORT ONLY [place] TEST STRESS CARDIOVASCULAR TRACING ONLY Kayley Gutierrez NP 2 [facility] [address] [place] [address] [facility] Referral ID Status Reason Start Date Expiration Date V isits Requested Visits Authorized [id number] Pending Review 05/04/2025 05/04/2026 3 3 Reason for Visit * Reason Comments Follow-up Encounter Details Date Type Department Care Team (Late st Contact Info) Description 05/04/2025 8:40 AM EST Office Visit [facility] [address] [place] [address] Kayley Gutierrez NP 2 [facility] [place] [address] Dyspnea on exertion (Primary Dx); PAD (peripheral artery disease) ([facility] V24); Nonrheumatic aortic valve stenosis; Atrial fibrillation and flutter ([facility] V24, [facility] V28); Secondary hypercoagulable state ([facility] V24); Primary hypertension; Other hyperlipidemia; Class 1 obesity due to excess calories with serious comorbidity and body mass index (BMI) of 33.0 to 33.9 in adult Social History Tobacco Use Types Packs/Day Years Used Date Smoking Tobacco: Never Smokeless Tobacco: Never Alcohol Use Standard Drinks/Week Comments Yes 0 (1 standard drink = 0.6 oz pur e alcohol) Housing Instability Answer Date Recorde d Are you worried that in the next 2 months you may not have stable housing? Patient declined 03/01/2025 Food Access & Nutrition Answer Date Rec orded Do you have access to a vari ety of food including fruits and vegetables? Patient declined 03/01/2025 Health Literacy Answer Date Recorded How often do you need to hav e someone help you when you read instructions, pamphlets, or other written material from your doctor or pharmacy? Patient declined 03/01/2025 Caregiver: How often do you need to have someone help you when you read instructions, pamphlets, or other written material from your doctor or pharmacy? Not on file 025 Financial Risk Answer Date Recorded How hard is it for you to pa y for the very basics like food, housing, medical care, and air conditioning / heating? Patient declined 03/01/2025 Transportation Answer Date Recorded Has the lack of transportati on kept you from meetings, work, or from getting things needed for daily living? Patient declined 03/01/2025 Has the lack of transportati on kept you from medical appointments or from getting medications? Patient declined 03/01/2025 Social Isolation Answer Date Recorded How often do you feel lonely or isolated from those around you? Patient declined 03/01/2025 Food Risk Answer Date Recorded Within the past 12 months we worried whether our food would run out before we got money to buy more. Patient declined 025 Within the past 12 months th e food we bought just didn't last and we didn't have money to get more. Patient declined 02/15 Dependent Care Answer Date Recorded Do you need help finding or paying for care for your loved ones. For example, child care team lead or elderly care for an older adult? Patient declined 03/01/2025 Education Answer Date Recorded Do you think completing more education or training, like finishing a GED, going to college, or learning a trade, would be helpful for you? Patient declined 03/01/2025 Employment and Income Answer Date Recor ded During the last four weeks, have you been actively looking for work? Patient declined 03/01/2025 Living Situation Answer Date Recorded What is your living situation? Unrecognized valu e 03/01/2025 Sex and Gender Information Value Date Recorded Sex Assigned at Not on file Legal Sex Male 1:36 AM EST Gender Identity Not on file Sexual Orientation Not on file documented as of this encounter Last Filed Vital Signs Vital Sign Reading Time Taken Comments Blood Pressure 120/60 05/04/2025 8:34 AM EST Pulse 59 05/04/2025 8:34 AM EST Temperature - - Respiratory Rate - - Oxygen Saturation 98% 05/04/2025 8:34 AM EST Inhaled Oxygen Concentration - - Weight 91.6 kg (202 lb) 05/04/2025 8:34 AM EST Height 165.1 cm (5' 5 ) 05/04/2025 8:34 AM EST Body Mass Index 33.61 05/04/2025 8:34 AM EST documented in this encounter Progress Notes * Kayley Gutierrez, HERBERTH - 05/04/2025 8:40 AM ESTAssociated Problem(s): Dyspnea on exertion The patient is dyspnea on exertion may be multifactorial in origin related to deconditioning, advanced age, obesity; he has never been a smoker. However, given his history of peripheral arterial disease with previous CVA on 04/06/2020, there is concern present related to possible underlying coronary artery disease that may be contributory. Echo in December 2024 for similar concerns of dyspnea on exertion showed mildly thickened aortic valve leaflets with sclerosis but no stenosis and trivial MR and TR, ruling out any valvular dysfunction as contributory. We discussed this at length today and heis amenable to a repeat ischemic evaluation; he would like to try ambulating on the treadmill but is aware that should his heart rate not respond appropriately, this may need to be converted to a chemical test and he is fully agreeable to this. We will continue to readdress this once results are reviewed. We discussed cardiac risk reduction through lifestyle modifications with healthy diet, and we ight management. The patient was advised to seek emergent medical attention by calling 911 if they were to develop severe dyspnea, chest pain that did not resolve with rest or nitroglycerin, or if they were to faint. Orders: Nuclear stress test with myocardial perfusion; Future * Kayley Gutierrez NP - 05/04/2025 8:40 AM ESTAssociated Problem(s): Aortic valve stenosis Mild aortic stenosis noted on echocardiogram completed August 2023; as above, echo in December 2024 showed aortic valve sclerosis without stenosis. We will continue to monitor this with serial imaging. We discussed signs and symptoms for which she should seek emergent medical attention or return to care for further evaluation; he verbalizes understanding. * Kayley Gutierrez NP - 05/04/2025 8:40 AM ESTAssociated Problem(s): Atrial fibrillation and flutter (CMS/HCC V24, CMS/HCC V28) Now status post failed ablation with rhythm control strategy utilizing sotalol. The patient denies any perceived recurrence of his atrial fibrillation; rhythm is regular on exam today with mild bradycardia and heart rate of 57. He is already on the lowest dose of sotalol which has been working wellfor him for an extended timeframe now; we will tolerate his current bradycardia given that he is feeling well and not having any symptoms related to this. Continue sotalol. We discussed the risks andbenefits of continuing with Eliquis for cardioembolic prophylaxis and he wishes to continue the current plan. He is on the appropriate dose for of Eliquis 5 mg twice daily for his age of less than 80years, weight of greater than 60 kg, and creatinine of less than 1.5. He is aware to seek urgent medical attention for any uncontrolled bleeding, signs or symptoms of GI or other internal bleeding, or for any head injury. * Kayley Gutierrez NP - 05/04/2025 8:40 AM ESTAssociated Problem(s): PAD (peripheral artery disease) ([facility] V24) The patient will continue to follow with vascular surgery as recommended with plan for repeat carotid duplex at the 2-year esperanza and office follow-up thereafter.. * Kayley Gutierrez NP - 05/04/2025 8:40 AM ESTAssociated Problem(s): Primary hypertension Blood pressure is favorable on current antihypertensive regimen; continue furosemide, lisinopril, nifedipine, sotalol, and isosorbide. Most recent metabolic panel showed stable renal function and electrolytes. * Kayley Gutierrez NP - 05/04/2025 8:40 AM ESTAssociated Problem(s): Class 1 obesity due to excess calories with serious comorbidity and body mass index (BMI) of 33.0 to 33.9 in adult Patient is obese. Approaches towards weight loss are discussed, including burning more calories than one takes in by portion control and regular exercise with an emphasis on duration rather than intensity * Kayley Gutierrez NP - 05/04/2025 8:40 AM ESTAssociated Problem(s): Secondary hypercoagulable state ([facility] V24) * Kayley Gutierrez NP - 05/04/2025 8:40 AM ESTAssociated Problem(s): Other hyperlipidemia LDL goal is less than 70; his most recent lipid panel completed on 04/11/2025 shows an LDL of 45. Continue atorvastatin. documented in this encounter Plan of Treatment Upcoming Encounters Date Type Department Care Team (Late st Contact Info) Description 05/22/2025 9:00 AM EST Ancillary Procedure [facility] [address] [place] [phone] 10/23/2025 8:00 AM EDT Office Visit Adult Medicine [address] [address] Marcos Torres PA [address] [place] [phone] Scheduled Orders Name Type Priority Associated Diagnoses Order Schedule Nuclear stress test with myocardial perfusion Cardiac Nuclear Medicine Routine Dyspnea on exertion 1 Occurrences starting 05/04/2025 until 05/04/2026 documented as of this encounter Visit Diagnoses Diagnosis Dyspnea on exertion- Primary Other dyspnea and respiratory abnormality PAD (peripheral artery disease) ([facility]/HCC V24) Unspecified peripheral vascular disease Nonrheumatic aortic valve stenosis Atrial fibrillation and flutter (CMS/HCC V24, CMS/HCC V28) Secondary hypercoagulable state (CMS/HCC V24) Secondary hypercoagulable state Primary hypertension Unspecified essential hypertension Other hyperlipidemia Class 1 obesity due to excess calories with serious comorbidity and body mass index (BMI) of 33.0 to 33.9 in adult documented in this encounter Additional Health Concerns Assessment Noted Time PHQ-9 Depression Total Score: 0 03/01/20 1:09 PM EDT documented as of this encounter Care Teams Nail Making Machine Setter Relationship Specialty Start Date End Date Marcos Torres PA [address] [place] [phone] PCP - General Internal Medicine 09/04/20 documented as of this encounter
--- NOTE | 2025-05-05 09:23 | MHC.OFFVIS ---
Intake Visit Reasons: 6m Allergies No Known Allergies Allergy (Verified 05/05/25 09:27) Medication List - Last Reconciled 05/05/25 by Rae Mcqueen CNP allopurinol 200 mg PO DAILY amlodipine 1 tab PO DAILY@1700 apixaban (Eliquis) 5 mg PO BID atorvastatin 80 mg PO BEDTIME cetirizine 10 mg PO DAILY furosemide 40 mg PO DAILY isosorbide mononitrate ER 60 mg PO DAILY lisinopril 20 mg PO BID nifedipine ER 30 mg PO DAILY pantoprazole 1 tab PO DAILY sotalol 80 mg PO BID HPI Comments Details: He was doing okay. No new stroke-like symptoms. Balance was about the same. No significant dizziness. Occasionally using walking stick for longer distances or when fishing. 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 No recent falls. Memory stable, foggy at times. Sleep was okay.?He needed to have oral surgery to have some teeth pulled and had consult scheduled for 05/2025. Saw vascular surgery in 2023 to review carotid u/s and MRI ordered by director of strategic partnerships which showed 75% blockage to R side, advised against surgery and recommended weight loss. Has lost some weight.? In 03/2020, he had acute punctate infarcts in the cerebellar vermis with acute onset of a funny feeling in his head, sweating and blurred vision, difficulty talking and felt unsteady. CTA revealed 75% stenosis of the right internal carotid, 50% stenosis of the left internal carotid with a calcified plaque and some intracranial calcifications without critical stenosis. Saw director of strategic partnerships because he had some symptoms if he walks any distance where he feels that his heart is irregular. Had a 30-day monitor and had an episode of Atrial fib. He had trouble breathing and felt dizzy and his heartrate dropped into 40s after starting metoprolol. [facility] Medical History (Updated 05/05/25 @ 09:27 by Rae Mcqueen CNP) Osteoarthritis Cerebellar ataxia Stroke GERD (gastroesophageal reflux disease) HTN (hypertension) A-fib Surgical History (Updated 03/24/20 @ 11:06 by Alana Chaparro RN) S/P ablation of atrial fibrillation Social History Household Members: None Housing: House Do you presently have visiting nurse or other home services: No Comment: Given in ED service: No Current occupational status: retired Review of Systems Const Denies chills, Denies daytime sleepiness, Denies difficulty sleeping, Reports fatigue, Denies fever(s), Denies frequent falls, Denies headache(s), Denies increased appetite, Denies poor appetite, Denies snoring, Denies weakness, Denies weight gain and Denies weight loss Eyes Denies loss of vision ENT Denies vertigo, Denies dizziness, Denies headache(s) and Denies neck pain Card Denies chest pain at rest, Denies chest pain with activity, Denies syncope, Denies leg edema, Denies palpitations, Denies dyspnea and Denies dyspnea on exertion Resp Denies cough, Denies dyspnea, Denies dyspnea on exertion and Denies snoring GI Denies abdominal pain, Denies constipation, Denies heartburn, Denies diarrhea and Denies nausea Denies urinary frequency, Denies urinary incontinence and Denies urinary urgency Musc Denies abnormal gait, Denies back pain, Denies myalgias, Denies arthralgias, Denies neck pain, Denies numbness and Denies tingling Neuro Denies abnormal gait, Denies vertigo, Denies dizziness, Denies syncope, Denies frequent falls, Denies headache(s), Denies lack of coordination, Denies loss of vision, Denies memory loss, Denies numbness, Denies Other visual disturbances, Denies restless legs, Denies seizure-like activity, Denies tingling, Denies paresthesias, Denies tremor(s), Denies weakness and Reports other (balance difficulty) Psych Denies anxiety, Denies depression, Denies auditory hallucinations, Denies memory loss and Denies visual hallucinations Endo Reports fatigue and Denies palpitations Physical Exam Const Other: General Appearance:? normal, in no acute distress. Heart:? S1, S2 normal, no murmurs. Lungs:? clear anteriorly and posteriorly. Musculoskeletal:? normal. Extremities:? no edema. Psych:? alert, oriented, cognitive function intact, cooperative with exam. Neuro Other: Abnormal Neurological Findings:?Mild cerebellar ataxia. Mental Status: alert and oriented X 3. Normal attention, orientation, memory, and affect. Cranial Nerves: Pupils are equal, round, and reactive to light. External ocular muscles are intact. Visual rabago are full, no ptosis. Face is symmetrical, no facial weakness or droop. Facial sensations are normal. Tongue protrudes in midline. Palate elevates symmetrically. Shoulder shrugging is normal Motor Examination: Normal muscle tone, bulk and strength. No atrophy or fasciculations. No drift of the extended upper extremities. DTR 2+. Plantars are flexor. Sensory Exam: Normal light touch, temperature, pinprick, vibration, and joint-position sensations. Rhomberg sign is absent. Gait Exam: As above. Cerebellar Signs: Najees-fz-psam is okay. Extrapyramidal System: No tremor, rigidity with normal facial expressions. No bradykinesia. No bradyphrenia. Normal arm swing and posture. No propulsion or retropulsion. Speech: Normal. Results Reviewed Results Reviewed: MRI brain 03/31/2023: Mild age related atrophy and microvascular white matter changes. Assessment & Plan Assessment & Plan (1) History of stroke: Code(s): Z86.73 - Personal history of transient ischemic attack (TIA), and cerebral infarction without residual deficits Category: Medical Plan: Continue statin. Control blood pressure. Follow up in 6 months or sooner as needed. 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 Coding Level of Care Code Est Pt Level 3 (45180) Diagnoses History of stroke Z86.73 Cerebellar ataxia G11.9
--- OUTSIDE RECORDS SUMMARY | 2025-05-05 09:47 | XMS_ITS ---
Author Name [facility] Organization Unknown Care Team Organization Name Specialty Phone Email Start Date End Da te [facility] Marcos Torres Primary Care 04/29/2023 [facility] Brigitte Glover Primary Care 03/25/2022
--- OUTSIDE RECORDS SUMMARY | 2025-05-05 09:47 | XMS_ITS | Encounter Summary ---
[facility] [place] [address] Care Team Providers Care Assistant Sales Center Manager Name Role Phone Marcos Torres Primary Care Provider [phone] Encounter Details Date Type Department Care Team ([facility] st Contact Info) Description 04/11/2025 Results Follow-Up [address] [phone] Marcos Torres PA [address] [place] [phone] Social History Tobacco Use Types Packs/Day Years [...] for your loved ones. 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 [...] on file documented as of this encounter Plan of Treatment Upcoming Encounters Date Type Department Care Team (Late st Contact Info) Description 05/22/2025 9:00 AM EST Ancillary Procedure [facility] [address] [place] [address] 10/23/2025 8:00 AM EDT Office Visit Adult Medicine [address] [phone] Marcos Torres PA [address] [place] [phone] documented as of this encounter Visit Diagnoses Not on filedocumented in this encounter Additional Health Concerns Assessment Noted Time PHQ-9 Depression Total Score: 0 03/01/20 25 1:09 PM EDT documented as of this encounter Care Teams Assistant Sales Center Manager Relationship Specialty Start Date End Date Marcos Torres PA [address] [place] [address] PCP - General Internal Medicine 09/04/20 documented as of this encounter
--- OUTSIDE RECORDS SUMMARY | 2025-05-05 09:48 | XMS_ITS | Clinical Summary ---
Author Organization [address] Address [address] [place] [phone] Phone Care Team Providers Care Medical Educator Name Role Phone Marcos Torres Primary Care Provider [phone] Allergies Active Allergy Reactions Criticality Noted Date Comments Ibuprofen 11/12/2020 Medications BABY ASPIRIN ORAL Take by mouth daily. Active multivitamin (MULTIPLE VITAMINS ORAL) Take 1 Tab by mouth daily. Active lisinopriL (PRINIVIL,ZESTR IL) 20 mg tablet TAKE 1 TABLET BY MOUTH TWICE DAILY 180 tablet 3 4 Active allopurinoL (ZYLOPRIM) 100 mg tablet TAKE 2 TABLETS BY MOUTH DAILY 180 tablet 3 5 Active atorvastatin (LIPITOR) 80 mg tablet TAKE 1 TABLET BY MOUTH ONCE DAILY 90 tablet 3 5 Active sotaloL (BETAPACE) 80 mg tablet Take 1 tablet (80 mg total) by mouth 2 (two) times a day. 180 tablet 1 5 Active NIFEdipine (ADALAT CC) 30 mg 24 hr tablet TAKE 1 TABLET BY MOUTH DAILY 90 tablet 1 5 Active acetaminophen (TYLENOL 8 HOUR) 650 mg 8 hr tablet Take 1 tablet (650 mg total) by mouth every 8 (eight) hours if needed for mild pain. Do not crush, chew, or split. Active isosorbide mononitrate (IMDUR) 60 mg 24 hr tabletIndicatio ns:SOB (shortness of breath),Nonrheu matic aortic valve stenosis,Bilate ral carotid bruits,Chest pain on exertion,PAD (peripheral artery disease) (CMS/HCC V24) Take 1 tablet (60 mg total) by mouth 1 (one) time each day. Do not crush or chew. 30 each 5 026 Active furosemide (LASIX) 40 mg tabletIndicatio ns:SOB (shortness of breath),Nonrheu matic aortic valve stenosis,Bilate ral carotid bruits,Chest pain on exertion,PAD (peripheral artery disease) (CMS/HCC V24) Take 1 tablet (40 mg total) by mouth 1 (one) time each day. 30 each 5 026 Active Eliquis 5 mg tablet TAKE 1 TABLET BY MOUTH TWICE DAILY 180 tablet 1 5 Active pantoprazole (PROTONIX) 40 mg EC tablet TAKE 1 TABLET BY MOUTH DAILY 90 tablet 5 Active pantoprazole (PROTONIX) 40 mg EC tablet TAKE 1 TABLET BY MOUTH DAILY 90 tablet 5 025 Discontinued Active Problems Problem Noted Date Diagnosed Date Dyspnea on exertion 12/20/2024 Assessment & Plan (05/04/2025 3:59 PM EST): The patient is dyspnea on exertion may [...] We discussed this at length today and he is amenable to a repeat ischemic evaluation; he [...] through lifestyle modifications with healthy diet, and weight management. The patient was advised to seek emergent medical attention by calling 911 if they were to develop severe dyspnea, chest pain that did not resolve with rest or nitroglycerin, or if they were to faint. Orders: Nuclear stress test with myocardial perfusion; Future Class 1 obesity due to exces s calories with serious comorbidity and body mass index (BMI) of 33.0 to 33.9 in adult 03/10/2024 Assessment & Plan (05/04/2025 3:59 PM EST): Patient is obese. Approaches towards weight loss are discussed, including burning more calories than one takes in by portion control and regular exercise with an emphasis on duration rather than intensity Fatigue 09/22/2023 Overview (03/10/2024): Last Assessment & Plan: The patient offers concerns related to increased fatigue at the end of the day; he denies any activity intolerance or shortness of breath with exertion and remains quite active on a regular basis. He previously would walk several miles a day, but his mobility is increasingly limited by knee pain. He does have a history of mild intermittent peripheral edema for which he is prescribed furosemide by his PCP; this works well for him and is not a consistent concern. This does not present concern for heart failure at this time, especially in light of recent echocardiogram completed 08/20/2023 showing no obvious concern for heart failure. We discussed that his fatigue at the end of the day is more likely related to advanced age as well as deconditioning over time. We also discussed a sleep study to evaluate for KORIN but he declines. We will continue to readdress this as needed; he was also encouraged to discuss this with his PCP. PAD (peripheral artery disease) 09/22/2023 Overview (03/10/2024): CTA of the head and neck on 08/06/2023 showing suspected stenosis of the proximal left subclavian and moderate stenosis of the mid left subclavian as well as stenosis of the brachiocephalic trunk. Calcified plaque at the carotid bulbs with an approximately 75% stenosis on the right and less than 50% on the left. No visible flow large portions of the left vertebral artery with irregular diminutive flow on opacified segments. Last Assessment & Plan: The patient remains on daily ASA as well as statin therapy; blood pressure is favorable. He has plan in place to follow-up with vascular surgery in 01/2024 for further evaluation and treatment. We reviewed signs and symptoms for which to seek emergent medical attention and he verbalizes understanding of this. Assessment & Plan (05/04/2025 3:59 PM EST): The patient will continue to follow with vascular surgery as recommended with plan for repeat carotid duplex at the 2-year esperanza and office follow-up thereafter.. Snoring 09/22/2023 Overview (03/10/2024): Last Assessment & Plan: Given the patient's history of snoring as well as paroxysmal atrial fibrillation and recently increased fatigue, we discussed that this represents an indication for the patient to undergo a sleep study. The patient reports that he feels well rested in the morning and declines a sleep study at present; we discussed the long-term implications of potentially untreated sleep apnea as they relate to his cardiovascular health and I requested that he call the office if he changes his mind. Aortic valve stenosis 06/26/2023 Overview (03/10/2024): Last Assessment & Plan: Mild aortic stenosis noted on most recent echocardiogram completed 08/20/2023; we will continue to monitor this with serial imaging. We discussed signs and symptoms for which she should seek emergent medical attention or return to care for further evaluation; he verbalizes understanding. Assessment & Plan (05/04/2025 3:59 PM EST): Mild aortic stenosis noted on echocardiogram completed August 2023; as above, echo in December 2024 showed aortic valve sclerosis without stenosis. We will continue to monitor this with serial imaging. We discussed signs and symptoms for which she should seek emergent medical attention or return to care for further evaluation; he verbalizes understanding. Bilateral carotid bruits 06/26/2023 Overview (03/10/2024): Last Assessment & Plan: Patient is noted to have bilateral carotid bruits, left greater than right, on exam today in the setting of a previous CVA. He has not had a repeat carotid duplex completed since his CVA in 2019; we will update this today and readdress this as needed once the results are reviewed. We will continue to work on improved blood pressure control; cholesterol is well-controlled on last check 04/17/2023. Secondary hypercoagulable state 06/26/2023 Assessment & Plan (05/04/2025 3:59 PM EST): Chest pain on exertion 01/11/2021 Paroxysmal atrial fibrillation 01/11/2021 Overview (03/10/2024): Last Assessment & Plan: The patient offers no recent symptoms of atrial fibrillation (he has typically been asymptomatic in the past); rhythm is regular on exam today with mild bradycardia and a heart rate in 57. He is on the lowest dose of sotalol which has been working well for him for an extended time frame now; we will tolerate his current bradycardia given that he is feeling well and is not having any symptoms related to bradycardia. Continue sotalol. We discussed the risks and benefits of continuing with Eliquis for cardioembolic prophylaxis and he wishes to continue with current medications. He is on the appropriate dose for his weight, age, and renal function. He is aware to seek emergent medical attention for any uncontrolled bleeding, signs or symptoms of GI or other internal bleeding, or for any head injury. Gout involving toe 09/26/2019 GERD (gastroesophageal reflux disease) 0 Osteoarthritis, knee 12/30/2016 Prediabetes 12/29/2016 Atrial fibrillation and flutter 03/26/2015 Overview (03/10/2024): Last Assessment & Plan: On Sotalol 80mg BID, tolerating well, has baseline bradycardia symptoms of lightheadedness seem to be related to the transition to nifedipine, does not appear to be due to his bradycardia as he has had this for quite some time without any issues. QTc stable. Anticoagulated on Eliquis, he understands the risks and benefits of anticoagulation and wishes to continue Assessment & Plan (05/04/2025 3:59 PM EST): Now status post failed ablation with rhythm control strategy utilizing sotalol. The patient denies any perceived recurrence of his atrial fibrillation; rhythm is regular on exam today with mild bradycardia and heart rate of 57. He is already on the lowest dose of sotalol which has been working well for him for an extended timeframe now; we will tolerate his current bradycardia given that he is feeling well and not having any symptoms related to this. Continue sotalol. We discussed the risks and benefits of continuing with Eliquis for cardioembolic prophylaxis and he wishes to continue the current plan. He is on the appropriate dose for of Eliquis 5 mg twice daily for his age of less than 80 years, weight of greater than 60 kg, and creatinine of less than 1.5. He is aware to seek urgent medical attention for any uncontrolled bleeding, signs or symptoms of GI or other internal bleeding, or for any head injury. Other hyperlipidemia 11/15/2014 Overview (03/10/2024): Last Assessment & Plan: Most recent lipid panel was completed 04/17/2023 revealing an LDL of 43 which is at goal for this patient; continue atorvastatin. Assessment & Plan (05/04/2025 3:59 PM EST): LDL goal is less than 70; his most recent lipid panel completed on 04/11/2025 shows an LDL of 45. Continue atorvastatin. Heart murmur, systolic 06/01/2013 Overview (03/10/2024): Last Assessment & Plan: Murmur is barely detectable, however we will update an echocardiogram. Knee pain 07/05/2007 Pain in joint, shoulder region 07/05/2007 Primary hypertension 07/05/2007 Overview (03/10/2024): Last Assessment & Plan: Blood pressure is well-controlled on current medical therapies; continue lisinopril, nifedipine, furosemide, as well as isosorbide and sotalol. Renal function stable on most recent labs completed 08/04/2023. Assessment & Plan (05/04/2025 3:59 PM EST): Blood pressure is favorable on current antihypertensive regimen; continue furosemide, lisinopril, nifedipine, sotalol, and isosorbide. Most recent metabolic panel showed stable renal function and electrolytes. Encounters Date Type Department Care Team Description 05/04/2025 8:40 AM EST Office Visit [facility] [address] [id number] Kayley Gutierrez NP Dyspnea on exertion (Primary Dx); PAD (peripheral artery disease) (CMS/HCC V24); Nonrheumatic aortic valve stenosis; Atrial fibrillation and flutter (CMS/HCC V24, CMS/HCC V28); Secondary hypercoagulable state (CMS/HCC V24); Primary hypertension; Other hyperlipidemia; Class 1 obesity due to excess calories with serious comorbidity and body mass index (BMI) of 33.0 to 33.9 in adult 04/18/2025 8:00 AM EST Office Visit [address] [phone] Marcos Torres PA Primary hypertension (Primary Dx); Need for vaccination against Streptococcus pneumoniae; Atrial flutter, unspecified type (CMS/HCC V24, CMS/HCC V28); Nonrheumatic aortic valve stenosis; Other hyperlipidemia; Chronic gout involving toe without tophus, unspecified cause, unspecified laterality; Gastroesophageal reflux disease without esophagitis; PAD (peripheral artery disease) (CMS/HCC V24); Paroxysmal atrial fibrillation (CMS/HCC V24, CMS/HCC V28); Prediabetes; Class 1 obesity due to excess calories with serious comorbidity and body mass index (BMI) of 34.0 to 34.9 in adult; Heart murmur, systolic 04/11/2025 9:00 AM EST Lab Draw [address] Aortic valve stenosis, etiology of cardiac valve disease unspecified; Atrial flutter, unspecified type (CMS/HCC V24, CMS/HCC V28); Gastroesophageal reflux disease without esophagitis; Chronic gout involving toe without tophus, unspecified cause, unspecified laterality; PAD (peripheral artery disease) (CMS/HCC V24); Other hyperlipidemia; Paroxysmal atrial fibrillation (CMS/HCC V24, CMS/HCC V28); Prediabetes; Primary hypertension; Class 1 obesity due to excess calories with serious comorbidity and body mass index (BMI) of 34.0 to 34.9 in adult 04/11/2025 Results Follow-Up [address] [place] [phone] Marcos Torres PA 03/03/2025 10:00 AM EDT Office Visit Adult Medicine [address] [phone] Genesis Cárdenas PA Lower respiratory tract infection (Primary Dx); Lab test positive for detection of COVID-19 virus; Primary hypertension; Paroxysmal atrial fibrillation (CMS/HCC V24, CMS/HCC V28) 02/28/2025 Telephone Adult Medicine [address] [phone] Marcos Torres PA from Last 3 Months Immunizations Immunization Administration Dates Next Due Influenza trivalent, 0.5mL ( Fluad) 65yo and older 02/08/2021,01/29/2020,03/10/2018,02/18,01/26/2015 Influenza trivalent, 0.5mL ( Fluzone High-dose) 65yo and older 03/17/2025,02/11/2024,03/10/2018,02/18,01/26/2015 Influenza trivalent, 0.5mL, preservative free (Fluarix; FluLaval; Fluzone) ages 6mo and older (Afluria) 3 years and older 03/03/2019,02/24/2017,02/23/2014 Moderna SARS-CoV-2 COVID-19, mRNA, LNP-S, preservative free 08/07/2020,07/10/2020 Pneumococcal conjugate 13 va lent (Prevnar 13, PCV13) 2mo and older 02/19/2016,10/04/2014 Pneumococcal conjugate 20 va lent (Prevnar 20, PCV 20) 2mo and older 04/18/2025 Pneumococcal polysaccharide 23 valent (Pneumovax 23) 2yo and older 01/27/2015,06/01/2013 RSV, bivalent, protein subun it RSVpreF, 0.5mL, Preservative Free (ABRYSVO) 50yo and older or 32 through 36 wks of 03/02/2024 Td Tetanus diptheria (Tdvax) 7yo and older 01/04/2018 Tdap Tetanus diptheria acell ular pertussis (Boostrix; Adacel) 7yo and older 11/10/2007 Zoster Live 12/02/2015 Surgical History Surgery Date Site/Laterality Comments KNEE ARTHROSCOPY 2003 PROCEDURE: [place] ARTHROSCOPY KNEE DIAGNOSTIC W/WO SYNOVIAL BX SPX COLONOSCOPY 2001 PROCEDURE: HISTORICAL COLONOSCOPY; COMMENT: Normal COLONOSCOPY July 2014 PROCEDURE: HISTORICAL COLONOSCOPY; COMMENT: diverticulosis, hemorrhoids Medical History Medical History Date Comments Obesity, unspecified 07/05/2007 DX:Obesity, unspecified Alcohol use 07/05/2007 DX:Alcohol use Back strain DX:Back strain Knee injury 08/18 DX:Knee injury Shoulder strain DX:Shoulder stra in; COMMENT: Rx clinoril, feldene Hypertension 07/05/2007 DX:Hypertension Hyperlipemia 11/15/2014 DX:Hyperlipemia Knee pain 07/05/2007 DX:Knee pain Pain in joint, shoulder region 07/05/2007 D X:Pain in joint, shoulder region Heart murmur, systolic 06/01/2013 DX:Heart murmur, systolic Family History Medical History Relation Name Comments CABG Father Parkinson's Disease Father Breast cancer Mother Relation Name Status Comments Brother 1 Alive healthy Brother 2 Alive healthy Father (Age 80) pneumo. Maternal Grandfather Maternal Grandmother Mother (Age 63) breast ca Paternal Grandfather Paternal Grandmother Sister 1 Alive healthy Sister 2 Alive healthy Social History Tobacco Use Types Packs/Day Years Used Date Smoking Tobacco: Never Smokeless Tobacco: Never Tobacco Cessation:Counseling Given: Not Answered Alcohol Use Standard Drinks/Week Comments Yes 0 [...] your doctor or pharmacy? Not on file Financial Risk Answer Date Recorded How hard [...] got money to buy more. Patient declined Within the past 12 months th e food we bought just didn't last and we didn't have money to get more. Patient declined 02/15 Dependent Care Answer Date Recorded Do you need help finding or paying for care for your loved ones. For example, children's ministries director or elderly care for an older adult? [...] on file Sexual Orientation Not on file Last Filed Vital Signs Vital Sign Reading Time Taken Comments Blood Pressure 120/60 05/04/2025 8:34 AM EST Pulse 59 05/04/2025 8:34 AM EST Temperature 35.8 C (96.4 F) 04/18/2025 7:56 AM EST Respiratory Rate 16 04/18/2025 7:56 AM EST Oxygen Saturation 98% 05/04/2025 8:34 AM EST Inhaled Oxygen Concentration - - Weight 91.6 kg (202 lb) 05/04/2025 8:34 AM EST Height 165.1 cm (5' 5 ) 05/04/2025 8:34 AM EST Body Mass Index 33.61 05/04/2025 8:34 AM EST Plan of Treatment Upcoming Encounters Date Type Department Care Team (Late st Contact Info) Description 05/22/2025 9:00 AM EST Ancillary Procedure [facility] [address] [place] [phone] 10/23/2025 8:00 AM EDT Office Visit Adult Medicine [address] [phone] Marcos Torres PA [address] [place] [phone] Health Maintenance Due Date Last Done Comments Zoster Vaccines (2 of 3) 01/27/2016 12/02/2015 Medicare Annual Wellness Visit 04/26/2022 COVID-19 Vaccine (3 - season) 2025 08/07/2020, 07/10/2020 Social Influencers of Health Screening 03/01/2026 03/01/2025 Falls Risk Assessment 03/03/2026 03/03/2025 Hypertension/CHF/CAD Annual BMP Blood Test 04/11/2026 04/11/2025, 12/30/2024, 12/20/2024, Additional history exists DTaP,Tdap,and Td Vaccines (3 - Td or Tdap) 01/05/2028 01/04/2018, 11/10/2007 Cholesterol Screening (Lipid Panel) 04/11/2030 04/11/2025, 04/05/2024, 04/17/2023 Hepatitis C Screening Completed 06/01/2013 Colorectal Cancer Screening: Colonoscopy Discontinued 01/07/2023 RSV Immunization Adult Patients Completed 03/02/2024 Depression Screening Completed 03/01/2025 Influenza Vaccine Completed 03/17/2025, , 02/25/2023, Additional history exists Pneumococcal Vaccine: 50+ Years Completed 04/18/2025, 02/19/2016, 01/27/2015, Additional history exists HIB Vaccines Aged Out No longer eligi ble based on patient's age to complete this topic HPV Vaccines Aged Out No longer eligi ble based on patient's age to complete this topic Hepatitis A Vaccines Aged Out No long er eligible based on patient's age to complete this topic Hepatitis B Vaccines Aged Out No long er eligible based on patient's age to complete this topic IPV Vaccines Aged Out No longer eligi ble based on patient's age to complete this topic MMR Vaccines Aged Out No longer eligi ble based on patient's age to complete this topic Meningococcal ACWY Vaccine Aged Out N o longer eligible based on patient's age to complete this topic Meningococcal B Vaccine Aged Out No l onger eligible based on patient's age to complete this topic RSV Immunization Patients Under 20 months Aged Out No longer eligible based on patient's age to complete this topic Varicella Vaccines Aged Out No longer eligible based on patient's age to complete this topic Procedures Procedure Name Priority Date/Time Associated Diagnosis Comments CBC WITH AUTO DIFFERENTIAL Routine 04/11/2025 9:12 AM EST Aortic valve stenosis, etiology of cardiac valve disease unspecified Atrial flutter, unspecified type ([facility] V24, CMS/[facility] V28) Gastroesophageal reflux disease without esophagitis Chronic gout involving toe without tophus, unspecified cause, unspecified laterality PAD (peripheral artery disease) ([facility] V24) Other hyperlipidemia Paroxysmal atrial fibrillation (CMS/[facility] V24, CMS/[facility] V28) Prediabetes Primary hypertension Class 1 obesity due to excess calories with serious comorbidity and body mass index (BMI) of 34.0 to 34.9 in adult LIPID PANEL WITH REFLEX TO DIRECT LDL Routine 04/11/2025 9:12 AM EST Aortic valve stenosis, etiology of cardiac valve disease unspecified Atrial flutter, unspecified type (CMS/HCC V24, CMS/HCC V28) Gastroesophageal reflux disease without esophagitis Chronic gout involving toe without tophus, unspecified cause, unspecified laterality PAD (peripheral artery disease) ([facility]/HCC V24) Other hyperlipidemia Paroxysmal atrial fibrillation (CMS/HCC V24, CMS/HCC V28) Prediabetes Primary hypertension Class 1 obesity due to excess calories with serious comorbidity and body mass index (BMI) of 34.0 to 34.9 in adult COMPREHENSIVE METABOLIC PANEL Routine 04/11/2025 9:12 AM EST Aortic valve stenosis, etiology of cardiac valve disease unspecified Atrial flutter, unspecified type ([facility] V24, [facility] V28) Gastroesophageal reflux disease without esophagitis Chronic gout involving toe without tophus, unspecified cause, unspecified laterality PAD (peripheral artery disease) ([facility] V24) Other hyperlipidemia Paroxysmal atrial fibrillation ([facility] V24, [facility] V28) Prediabetes Primary hypertension Class 1 obesity due to excess calories with serious comorbidity and body mass index (BMI) of 34.0 to 34.9 in adult HEMOGLOBIN A1C Routine 04/11/2025 9:12 AM EST Aortic valve stenosis, etiology of cardiac valve disease unspecified Atrial flutter, unspecified type ([facility] V24, [facility] V28) Gastroesophageal reflux disease without esophagitis Chronic gout involving toe without tophus, unspecified cause, unspecified laterality PAD (peripheral artery disease) ([facility] V24) Other hyperlipidemia Paroxysmal atrial fibrillation ([facility] V24, [facility] V28) Prediabetes Primary hypertension Class 1 obesity due to excess calories with serious comorbidity and body mass index (BMI) of 34.0 to 34.9 in adult URIC ACID Routine 04/11/2025 9:12 AM EST Aortic valve stenosis, etiology of cardiac valve disease unspecified Atrial flutter, unspecified type ([facility] V24, [facility] V28) Gastroesophageal reflux disease without esophagitis Chronic gout involving toe without tophus, unspecified cause, unspecified laterality PAD (peripheral artery disease) ([facility] V24) Other hyperlipidemia Paroxysmal atrial fibrillation ([facility] V24, [facility] V28) Prediabetes Primary hypertension Class 1 obesity due to excess calories with serious comorbidity and body mass index (BMI) of 34.0 to 34.9 in adult CBC AND DIFFERENTIAL Routine 04/11/2025 9:12 AM EST Aortic valve stenosis, etiology of cardiac valve disease unspecified Atrial flutter, unspecified type ([facility] V24, [facility] V28) Gastroesophageal reflux disease without esophagitis Chronic gout involving toe without tophus, unspecified cause, unspecified laterality PAD (peripheral artery disease) ([facility] V24) Other hyperlipidemia Paroxysmal atrial fibrillation (CMS/HCC V24, CMS/HCC V28) Prediabetes Primary hypertension Class 1 obesity due to excess calories with serious comorbidity and body mass index (BMI) of 34.0 to 34.9 in adult POC RAPID [id number], MOLECULAR Routine 03/03/2025 10:17 AM EDT Lower respiratory tract infection POC INFLUENZA A/B Routine 03/03/2025 10: 15 AM EDT Lower respiratory tract infection HM COLONOSCOPY Routine 01/07/2023 HEPATITIS C SCREENING Routine 06/01/2013 from Last 3 Months or Most Recently Relevant to Health Maintenance Results * Lipid panel with reflex to direct LDL (04/11/2025 9:12 AM EST) Cholesterol 121 0 - 200 mg/dL 04/11/2025 1:30 PM [facility] Triglycerides 65 0 - 150 mg/dL 04/11/2025 1:30 PM [facility] HDL 63 >=40 mg/dL 04/11/2025 1:30 PM [facility] LDL Calculated 45 0 - 100 mg/dL 04/11/2025 1:30 PM [facility] Comment:Estimated LDL Calcul ated using equation: Total cholesterol - HDL cholesterol - (Triglycerides/5) VLDL Cholesterol Antony 13 mg/dL 04/11/2025 1:30 PM [facility] Non HDL Chol. (LDL+VLDL) 58 <145 mg/dL 04/11/2025 1:30 PM [facility] Chol/HDL Ratio 1.9 0.0 - 4.4 04/11/2025 1:30 PM [facility] Blood Venous blood specimen / Unknown Venipuncture / Unknown 04/11/2025 9:12 AM EST 04/11/2025 9:12 AM EST us Marcos [facility] LAB BLOOD ORDERABLES Joyce l Result [facility] [address] [place] [address], * (ABNORMAL) CBC auto differential (04/11/2025 9:12 AM EST) WBC 6.3 4.8 - 10.8 K/mcL LAB HEMETOLOGY METHOD 04/11/2025 10:12 AM EST [facility] RBC 4.50 4.50 - 5.50 M/mcL LAB HEMETOLOGY METHOD 04/11/2025 10:12 AM [facility] Hemoglobin 14.0 13.5 - 17.5 g/dL LAB HEMETOLOGY METHOD 04/11/2025 10:12 AM [facility] Hematocrit 41.8(L) 42.0 - 54.0 % LAB HEMETOLOGY METHOD 04/11/2025 10:12 AM [facility] MCV 93.9 79.0 - 98.0 FL LAB HEMETOLOGY METHOD 04/11/2025 10:12 AM [facility] MCH 31.5 27.0 - 32.0 pcg LAB HEMETOLOGY METHOD 04/11/2025 10:12 AM [facility] MCHC 33.5 32.0 - 37.0 g/dL LAB HEMETOLOGY METHOD 04/11/2025 10:12 AM [facility] RDW 13.3 11.0 - 15.0 % LAB HEMETOLOGY METHOD 04/11/2025 10:12 AM [facility] Platelets 197 130 - 400 K/mcL LAB HEMETOLOGY METHOD 04/11/2025 10:12 AM [facility] MPV 11.3(H) 7.0 - 11.0 FL LAB HEMETOLOGY METHOD 04/11/2025 10:12 AM [facility] NRBC 0.0 <1.0 % LAB HEMETOLOGY METHOD 04/11/2025 10:12 AM [facility] NRBC Absolute 0.00 <0.10 K/mcL LAB HEMETOLOGY METHOD 04/11/2025 10:12 AM [facility] Neutrophils Relative 52.0 % LAB HEMETOLOGY METHOD 04/11/2025 10:12 AM [facility] Lymphocytes Relative 25.6 % LAB HEMETOLOGY METHOD 04/11/2025 10:12 AM [facility] Monocytes Relative 14.2 % LAB HEMETOLOGY METHOD 04/11/2025 10:12 AM [facility] Eosinophils Relative 6.9 % LAB HEMETOLOGY METHOD 04/11/2025 10:12 AM [facility] Basophils Relative 1.0 % LAB HEMETOLOGY METHOD 04/11/2025 10:12 AM [facility] Immature Granulocytes Relative 0.3 % LAB HEMETOLOGY METHOD 04/11/2025 10:12 AM [facility] Neutrophils Absolute 3.26 1.50 - 7.00 K/mcL LAB HEMETOLOGY METHOD 04/11/2025 10:12 AM [facility] Lymphocytes Absolute 1.60 1.00 - 5.00 K/mcL LAB HEMETOLOGY METHOD 04/11/2025 10:12 AM [facility] Monocytes Absolute 0.89 0.20 - 1.00 K/mcL LAB HEMETOLOGY METHOD 04/11/2025 10:12 AM [facility] Eosinophils Absolute 0.43 0.00 - 0.50 K/mcL LAB HEMETOLOGY METHOD 04/11/2025 10:12 AM [facility] Basophils Absolute 0.06 0.00 - 0.20 K/mcL LAB HEMETOLOGY METHOD 04/11/2025 10:12 AM EST [facility] Immature Granulocytes Absolute 0.02 0.00 - 0.03 K/mcL LAB HEMETOLOGY METHOD 04/11/2025 10:12 AM EST [facility] Blood Venous blood specimen / Unknown Venipuncture / Unknown 04/11/2025 9:12 AM EST 04/11/2025 9:12 AM EST Marcos Torres [place] LAB BLOOD ORDERABLES Joyce l Result Performing Organization Address City/[facility]/ZIP Co de Phone Number [facility] [address] [place] [address], * Uric acid (04/11/2025 9:12 AM EST) Uric Acid 5.0 3.7 - 9.2 mg/dL 04/11/2025 1:30 PM EST [facility] Blood Venous blood specimen / Unknown Venipuncture / Unknown 04/11/2025 9:12 AM EST 04/11/2025 9:12 AM EST Marcos Torres [place] LAB BLOOD ORDERABLES Joyce l Result Performing Organization Address City/[facility]/ZIP Co de Phone Number [facility] [address] [place] [address], * Hemoglobin A1c (04/11/2025 9:12 AM EST) Hemoglobin A1C 5.9 <6.5 % LAB CHEMISTRY METHOD 04/11/2025 11:59 AM EST [facility] Mean Bld Glu Estim. 123 mg/dL LAB CHEMISTRY METHOD 04/11/2025 11:59 AM EST [facility] Blood Venous blood specimen / Unknown Venipuncture / Unknown 04/11/2025 9:12 AM EST 04/11/2025 9:12 AM EST us Marcos [facility]ALIC[facility] LAB BLOOD ORDERABLES Joyce l Result [facility] [address] [place] [address], * (ABNORMAL) Comprehensive metabolic panel (04/11/2025 9:12 AM EST) Sodium 137 133 - 145 mmol/L 04/11/2025 1:30 PM [facility] Potassium 5.1 3.5 - 5.5 mmol/L 04/11/2025 1:30 PM [facility] Chloride 103 96 - 110 mmol/L 04/11/2025 1:30 PM [facility] CO2 26 21 - 32 mmol/L 04/11/2025 1:30 PM [facility] Anion Gap 8 3 - 11 04/11/2025 1:30 PM [facility] Glucose 117(H) 70 - 100 mg/dL 04/11/2025 1:30 PM [facility] BUN 47(H) 5 - 25 mg/dL 04/11/2025 1:30 PM [facility] Creatinine 1.40(H) 0.70 - 1.30 mg/dL 04/11/2025 1:30 PM [facility] eGFR 51(L) >=60 mL/min/1. 73m2 04/11/2025 1:30 PM [facility] Comment:Calculation based on the Chronic Kidney Disease Epidemiology Collaboration (CKD-EPI) equation refit without adjustment for race. BUN/Creatinine Ratio 33.6 04/11/2025 1:30 PM [facility] Calcium 8.2(L) 8.5 - 10.5 mg/dL 04/11/2025 1:30 PM [facility] AST (SGOT) 38 10 - 42 unit/L 04/11/2025 1:30 PM [facility] ALT (SGPT) 30 10 - 60 unit/L 04/11/2025 1:30 PM [facility] Alkaline Phosphatase 69 42 - 121 unit/L 04/11/2025 1:30 PM [facility] Total Protein 6.7 6.0 - 8.0 g/dL 04/11/2025 1:30 PM [facility] Albumin 3.7 3.2 - 5.0 g/dL 04/11/2025 1:30 PM [facility] Total Bilirubin 0.5 0.0 - 1.4 mg/dL 04/11/2025 1:30 PM [facility] Blood Venous blood specimen / Unknown Venipuncture / Unknown 04/11/2025 9:12 AM EST 04/11/2025 9:12 AM EST Marcos [facility] LAB BLOOD ORDERABLES Joyce l Result [facility] [address] [place] [address], * (ABNORMAL) Poc Rapid [id number], MOLECULAR (03/03/2025 10:17 AM EDT) Pathologist [facility] COVID-19/SARS- COV-2 Rapid POC Positive(A ) Negative Internal Control Pass Yes Yes Swab Nasopharyngeal structure / Unknown 03/03/2025 10:17 AM EDT [facility] POINT OF CARE TEST ENTER/EDIT OR DERABLES Final Result * POC Influenza A/B manually resulted (03/03/2025 10:15 AM EDT) Rapid Influenza A AGN POC Negative Negative Rapid Influenza B AGN POC Negative Negative Internal Control Pass Yes Yes Swab 03/03/2025 10:1 5 AM EDT [facility] POINT OF CARE TEST ENTER/EDIT OR DERABLES Final Result * Colonoscopy (01/07/2023) Colonoscopy no interpretation , abstracted Anatomical Region Laterality Modality Other Historical Provider HEALTH MAINTENANCE Final Result * Hepatitis C Screening (06/01/2013) Hepatitis C Screening abstracted Historical Provider HEALTH MAINTENANCE Final Result from Last 3 Months or Most Recently Relevant to Health Maintenance Insurance [employer] [place] [employer] Care Teams Medical Educator Relationship Specialty Start Date End Date Marcos Torres PA [address] [place] [id number] PCP - General Internal Medicine 09/04/20
== END 2025-05-05 09:36 | disposition home or self-care (01) ==
LOC: HO.HSM 09:16
PROVIDERS: PCP Internal Medicine; Visit Provider Registered Nurse
DX: Z86.73 Personal history of transient ischemic attack (TIA), and cerebral infarction without residual deficits (principal); G11.9 Hereditary ataxia, unspecified
CPT/HCPCS: 99213

== ENCOUNTER → 2025-05-05 09:15 | Outpatient (BNVA) | payer MEDICARE, SELFPAY | PROVIDERS: PCP Internal Medicine; Visit Provider Registered Nurse | DX: G11.9 Hereditary ataxia, unspecified (principal); Z86.73 Personal history of transient ischemic attack (TIA), and cerebral infarction without residual deficits; Z79.899 Other long term (current) drug therapy | CPT/HCPCS: 99212 ==